=== PATIENT | female | born 1990 ===

== ENCOUNTER 2024-08-17 10:19 | Outpatient (AMB) | payer OTHER, BC, SELFPAY ==
[2024-08-17 10:32] VITALS: BP 110/69; PULSE 90; RESP 18; TEMP 36.7; O2SAT 98; BMI 42.9
--- NOTE | 2024-08-17 10:32 | GYNCLNT_ITS ---
Vital Signs 08/17/24 10:32 Height 1.6 m Height Method Stated Weight 109.996 kg Weight Measurement Method Standing Scale BMI 42.9 BP 110/69 Blood Pressure Source Automatic Cuff Blood Pressure Location Left Upper Arm Position Sitting Respiration 18 Pulse 90 Pulse Source Monitor Temp 98.1 F Temp Source Oral Pulse Oximetry (%) 98 Oxygen Delivery Method Room Air Allergies/Home Meds Allergies & Medications Allergies No Known Allergies Allergy (Verified 08/17/24 10:44) Medication Reconciliation No Known Home Medications 08/17/24 [History Confirmed 08/17/24] Intake Visit Data Collection New Patient or Established: New Patient (never been to [facility]) Reason for Visit:: RECURRING MISCARRIAGE/ LAB RESULTS Seen by Clinical Staff ONLY (RN/MA): No Metal Inspector Required: No Do You Feel Safe at Home: Yes Authorities Contacted: N/A PCP or OBGYN visit in last 3 months: No Hx Now: No Are you currently on any form of Control: No Pain Present Currently: No Pain Scale Used: Pantoja-Barker/Numerical Pain scale:: 0 Smoking Status Smoking Status: 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 1. Little interest or pleasure in doing things: not at all 2. Feeling down, depressed, or hopeless: not at all Total score: 0 PHQ-9 3. Trouble falling or staying asleep, or sleeping too much: Not at all 4. Feeling tired or having little energy: Not at all 5. Poor appetite or overeating: Not at all 6. Feeling bad about yourself - or that you are a failure or have let yourself or your family down: Not at all 7. Trouble concentrating on things, such as reading the newspaper or watching television: Not at all 8. Moving or speaking so slowly that other people could have noticed? - Or the opposite - being so fidgety or restless that you have been moving around a lot more than usual: not at all 9. Thoughts that you would be better off or of hurting yourself in some way: Not at all Total score: 0 Source: Developed by Drs. Devon Sorto, Hiral Clark, Chucho Sanchez and colleagues, with an educational khalif from [employer]. 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 Tobacco History Smoking Status: Former smoker Alcohol History Alcohol Intake: Current Alcohol Intake Frequency: holidays/special occasions only Domestic Abuse History Do You Feel Safe at Home: Yes Past Medical History Past Medical History Have you ever been diagnosed with any of the following: Neurological Problems Migraine: No Cardiology Problems Cardiac Arrhythmia: No Heart Murmur: No Hypertension: No Respiratory Problems Asthma: No Smoking: No Stomache/Intestinal Problems Irritable Bowel: No Obesity: Yes (History of recent gastric sleeve performed August 10, 2024) Reproductive Problems Endometriosis: No Polycystic Ovarian Syndrome: Yes Previous Pregnancies: Yes (Miscarriage x 3 early, no dilation and curettage) Musculoskeletal Problems Arthritis: No Rheumatoid Arthritis: No Fibromyalgia: No Endocrine Problems Diabetes Mellitus Type 2: Yes Hyperthyroidism: No Hypothyroidism: No Systemic Lupus Erythematosus: No Blood Problems Anemia: No Psychologic Problems Recreational Drug Use: No Depression: No Anxiety: No Other Problems Hospitalization: No Autoimmune Disease: No Surgical History Appendectomy: No Bariatric Surgery: Yes (In July 2024) Cholecystectomy: No History of Present Illness HPI Narrative The patient is a 34-year-old status post early miscarriage x 3 who presents to discuss future . She just had a gastric sleeve performed a week ago. We did discuss the fact that she should not attempt for at least 6 months after her gastric sleeve. She needs to follow-up closely with her doctor during for any lab work because of her gastric sleeve. She used to see me in my old office. She suffers from PCOS. I have no medical records except for some labs drawn by Dr. Laguna regarding recurrent miscarriages. Patient has an elevated hemoglobin A1c of 6.2 and elevated beta-2 glycoprotein IgG's suggestive of possible antiphospholipid antibody syndrome. Patient takes some type of herbal tea monthly and states that she has a period with this. She had an early miscarriage in February 18, April and in February or March 2024. She has been for 5 years and they have been trying since then for . Review of Systems Review of Systems Narrative Review of Systems: Patient states she does not have regular cycles except when she takes herbal tea. They are regular now. Exam General Limitations: no limitations General Appearance: alert, in no apparent distress, comfortable, cooperative, healthy appearing, well developed and well groomed Neck Neck exam: Present normal inspection, full ROM and trachea midline Chest Chest inspection: Present normal inspection and symmetric chest wall rise Resp Respiratory exam: Present normal lung sounds bilaterally Card Cardiovascular exam: Present regular rate, normal rhythm and normal heart sounds Abdominal Abdominal exam: Present soft and normal bowel sounds Psych Psychiatric exam: Present normal affect and normal mood Skin Skin exam: Present warm, dry, intact and normal color Results Objective Laboratory: Patient brought lab work revealing elevated hemoglobin A1c Thyroid WNL Assessment & Plan Diagnosis / Problem List (1) Habitual aborter not currently : Status: Acute Assessment and Plan: 4 mg Folic acid. Lovenox during . PG 200mg PO q HS once (2) History of PCOS: Status: Acute Assessment and Plan: Labs in 4-6 months (3) Status post gastric banding surgery: Status: Acute Assessment and Plan: Discouraged for 6 months, Pt will use condoms. Office Procedures OB Clinic LOC & Office Proc's Nursing/Assessment Patient Status: Initial/New Patient OB Clinic Nursing Assessment: Medication Reconciliation, Update PMH in EMR and Vital Signs OB Clinic Coordination of Care: Complex Care and Chronic Disease 1-5, Consent,records obtained, informed consent, Education Simp Pt/Fam, Results/Orders obtained and Staff clarify orders New Patient Charge New Patient Point Assignment: 1089 New Patient Point Charge: ENERGY CONSERVATION ENGINEER Level 3 ([id number])
== END 2024-08-17 11:43 | disposition home or self-care (01) ==
LOC: HODSOBC 10:19
PROVIDERS: Supervising Provider Obstetrics & Gynecology; Visit Provider Obstetrics & Gynecology
DX: N96 Recurrent pregnancy loss (principal); E28.2 Polycystic ovarian syndrome; Z98.84 Bariatric surgery status; Z87.891 Personal history of nicotine dependence
CPT/HCPCS: 99203; G0463